=== PATIENT | male | born 1935 | race Hispanic/Latino ===

== ENCOUNTER 2019-08-28 15:50 | Inpatient (IN) | payer MEDICARE, OTHER ==
[~2019-08-28] VITALS: Ht 162.6 cm; Wt 61.7 kg
--- OUTSIDE RECORDS SUMMARY | 2019-08-28 15:52 | XMS REPORT ---
Author Author [facility] Address Unknown Phone Unavailable Care Team Providers Care Under Cutting Machine Operator Name Role Phone Unavailable Unavailable Problems This patient has no known problems. Allergies, Adverse Reactions, Alerts This patient has no known allergies or adverse reactions. Medications This patient has no known medications. Encounters Start Date/Time End Date/Time Encounter Type Admission Type Attending Clinicians Care Facility Care Department Encounter ID 2019-07-22 14:40:18 Outpatient [facility] [id number] 2019-06-19 10:42:00 2019-06-19 10:42:00 Outpatient [facility] [id number] 2019-05-21 13:47:00 2019-05-21 13:47:00 Outpatient [facility] [id number]
[2019-08-28] MEDS ORDERED: ALBUTEROL SULF 0.083% NEB SOLN 3 ML NEB NEB STA (17:57)
[2019-08-28] MEDS ORDERED: IPRATROPIUM BROMIDE 0.02% 2.5 ML NEB NEB STA (17:57)
[2019-08-28] MEDS ORDERED: FAMOTIDINE 20 MG/2 ML VIAL IV ONE ×2 (17:57→21:22)
[2019-08-28] MEDS ORDERED: SODIUM CHLORIDE 0.9% 1000ML 1,000 ML IV STA (17:57)
[2019-08-28] MEDS ORDERED: MEROPENEM 1GRAM 1 GM in SODIUM CHLORIDE 0.9% 100 ML 100 ML IV ONE (18:00)
[2019-08-28] MEDS ORDERED: MEROPENEM 1GRAM 1 GM in SODIUM CHLORIDE 0.9% 100 ML 100 ML IV SCH (18:15)
[2019-08-28] MEDS ORDERED: LEVALBUTEROL HCL SOLN NEBU 1.25 MG/3 ML NEB INH PRN (18:15)
[2019-08-28] MEDS ORDERED: MEROPENEM 1GM 100 ML IV ONE (18:15)
[2019-08-28 18:56] LABS: BASOPHILS # (AUTO) 0.1 (0.0-0.1); BASOPHILS % 0.7 % (0.0-1.0); EOSINOPHILS # (AUTO) 0.5 (0.0-0.4); EOSINOPHILS % 6.2 % (0.0-6.0); HEMATOCRIT 42.6 % (38.2-49.6); LYMPHOCYTES # (AUTO) 1.3 (1.0-3.2); MEAN CORPUSCULAR HEMOGLOBIN 29.2 pg (28-32); MEAN CORPUSCULAR HGB CONC 32.9 g/dL (31-35); MEAN CORPUSCULAR VOLUME 88.8 fL (81-99); MONOCYTES # (AUTO) 0.5 (0.2-0.8); MONOCYTES % 7.3 % (4.4-11.3); NEUTROPHILS # (AUTO) 4.9 (2.1-6.9); NEUTROPHILS % 67.5 % (38.7-80.0); PLATELET COUNT 216 x10e3/uL (140-360)
[2019-08-28 19:01] LABS: BILIRUBIN,URINE NEGATIVE (NEGATIVE); CLARITY,URINE CLEAR (CLEAR); COLOR,URINE YELLOW (YELLOW); KETONES,URINE NEGATIVE (NEGATIVE); LEUKOCYTE ESTERASE ,URINE NEGATIVE (NEGATIVE); NITRITE,URINE NEGATIVE (NEGATIVE); PROTEIN,URINE DIPSTICK NEGATIVE (NEGATIVE); URINE UROBILINOGEN 0.2 mg/dL (0.2 - 1)
[2019-08-28 19:07] LABS: INR 4.07
[2019-08-28 19:08] LABS: PARTIAL THROMBOPLASTIN TIME 49.1 seconds (23.8-35.5)
[2019-08-28 19:09] LABS: PROTHROMBIN TIME 40.3 seconds (11.9-14.5)
[2019-08-28 19:19] LABS: ALANINE AMINOTRANSFERASE 23 IU/L (0-55); ALBUMIN 3.7 g/dL (3.5-5.0); ALBUMIN/GLOBULIN RATIO 0.9 (0.8-2.0); ALKALINE PHOSPHATASE 75 IU/L (40-150); ANION GAP 11.6 mmol/L (8-16); BLOOD UREA NITROGEN 14 mg/dL (7-26); BUN/CREATININE RATIO 17 (6-25); CALCIUM 9.9 mg/dL (8.4-10.2); CARBON DIOXIDE 30 mmol/L (22-29); CHLORIDE 100 mmol/L (98-107); CREATINE KINASE 55 IU/L (30-200); CREATININE, SERUM 0.83 mg/dL (0.72-1.25); EST GLOMERULAR FILTRATION RATE > 60 ML/MIN (60-); GLUCOSE 89 mg/dL (74-118); LIPASE 37 U/L (8-78); MAGNESIUM 2.1 MG/DL (1.3-2.1); POTASSIUM 4.6 mmol/L (3.5-5.1); SODIUM 137 mmol/L (136-145)
--- NOTE | 2019-08-28 19:36 | Diagnostic Imaging Report ---
EXAMINATION: CHEST SINGLE (PORTABLE) INDICATION: Shortness of breath. Cough ^ERMD ORDER ^[id number] ^192 ^Y COMPARISON: None FINDINGS: TUBES and LINES: Sternal wires.. LUNGS: Scattered opacities most pronounced in the left lung worrisome for multifocal pneumonia. PLEURA: No pleural effusion or pneumothorax. Calcified pleural plaques. HEART AND MEDIASTINUM: The cardiomediastinal silhouette is unremarkable. BONES AND SOFT TISSUES: No acute osseous lesion. Soft tissues are unremarkable. UPPER ABDOMEN: No free air under the diaphragm. IMPRESSION: Scattered opacities most pronounced in the left lung worrisome for multifocal pneumonia Calcified pleural plaques. Signed by: Dr. Idris Castro M.D. on 08/28/2019 7:33 PM
[2019-08-28] MEDS ORDERED: AZITHROMYCIN 500MG/NS 250 ML 250 ML IV SCH (20:00)
[2019-08-28] MEDS ORDERED: AZITHROMYCIN 500MG/NS 250 ML 250 ML IV ONE (20:00)
[2019-08-28] MEDS: SODIUM CHLORIDE 0.9% 1000ML 1,000 ML IV SCH (21:30)
[2019-08-28] MEDS: MEROPENEM 1GM 100 ML IV SCH (21:35)
[2019-08-28 22:55] VITALS: BP 151/66
[2019-08-28 23:20] VITALS: BP 151/66
--- NOTE | 2019-08-28 23:30 | NUR ---
PATIENT ARRIVED FROM ER IN STABLE CONDITION, NO SIGNS OF DISTRESS NOTED. SON IS AT BEDSIDE AND PATIENT IS AMBULATORY HE IS WALKING OUT OF RESTROOM. IV MEDICATIONS ARE RUNNING AT ORDERED RATE AND PATIENT DOES NOT COMPLAIN OF SOB. BED IS LOCKED AND IN LOWEST POSITION, BOTH SIDE RAILS ARE UP, CALL LIGHT WITHIN EASY REACH, WILL CONTINUE TO MONITOR.
[2019-08-28] MEDS ORDERED: FINASTERIDE5 MG PO (23:41)
[2019-08-28] MEDS ORDERED: WARFARIN SODIUM10 MG PO (23:41)
[2019-08-28] MEDS ORDERED: TRIAMCINOLONE A15 G1 TOP (23:41)
[2019-08-28] MEDS ORDERED: NITROGLYCERIN0.4 MG SL (23:41)
[2019-08-28] MEDS ORDERED: ATORVASTATIN CA20 MG PO (23:41)
[2019-08-28] MEDS ORDERED: FLOMAX0.4 MG PO (23:41)
[2019-08-28] MEDS ORDERED: SOTALOL80 MG PO (23:41)
[2019-08-29 02:56] LABS: CREATINE KINASE MB 1.9 ng/mL (0-5.0)
[2019-08-29 04:04] VITALS: BP 142/64
[2019-08-29] MEDS: SODIUM CHLORIDE 0.9% 1000ML 1,000 ML IV SCH (04:15)
[2019-08-29] MEDS: MEROPENEM 1GM 100 ML IV SCH ×2 (06:45→19:07)
[2019-08-29 06:47] LABS: BASOPHILS % 0.7 % (0.0-1.0); EOSINOPHILS # (AUTO) 0.4 (0.0-0.4); EOSINOPHILS % 6.5 % (0.0-6.0); HEMATOCRIT 37.5 % (38.2-49.6); HEMOGLOBIN 12.1 g/dL (14.0-18.0); LYMPHOCYTES # (AUTO) 1.1 (1.0-3.2); LYMPHOCYTES % 19.5 % (18.0-39.1); MEAN CORPUSCULAR HEMOGLOBIN 28.5 pg (28-32); MEAN CORPUSCULAR HGB CONC 32.3 g/dL (31-35); MEAN CORPUSCULAR VOLUME 88.4 fL (81-99); MONOCYTES # (AUTO) 0.5 (0.2-0.8); MONOCYTES % 8.1 % (4.4-11.3); NEUTROPHILS # (AUTO) 3.7 (2.1-6.9); NEUTROPHILS % 64.8 % (38.7-80.0); PLATELET COUNT 168 x10e3/uL (140-360); RED BLOOD COUNT 4.24 x10e6/uL (4.3-5.7); RED CELL DISTRIBUTION WIDTH 15.1 % (11.7-14.4)
[2019-08-29 06:55] LABS: PARTIAL THROMBOPLASTIN TIME 54.3 seconds (23.8-35.5); PROTHROMBIN TIME 37.7 seconds (11.9-14.5)
--- NOTE | 2019-08-29 07:00 | NUR ---
BEDSIDE SHIFT REPORT RECEIVED FROM THE INTERLINE CLERK RN. PT DENIES NEEDS AT THIS TIME.
[2019-08-29 07:11] LABS: INR 3.73
[2019-08-29 07:15] LABS: ALANINE AMINOTRANSFERASE 20 IU/L (0-55); ALBUMIN 2.9 g/dL (3.5-5.0); ALBUMIN/GLOBULIN RATIO 0.9 (0.8-2.0); ALKALINE PHOSPHATASE 66 IU/L (40-150); ANION GAP 9.8 mmol/L (8-16); BLOOD UREA NITROGEN 13 mg/dL (7-26); BUN/CREATININE RATIO 20 (6-25); CALCIUM 8.1 mg/dL (8.4-10.2); CARBON DIOXIDE 28 mmol/L (22-29); CHLORIDE 102 mmol/L (98-107); CREATININE, SERUM 0.65 mg/dL (0.72-1.25); EST GLOMERULAR FILTRATION RATE > 60 ML/MIN (60-); GLUCOSE 77 mg/dL (74-118); MAGNESIUM 3.4 MG/DL (1.3-2.1); PHOSPHORUS 2.4 MG/DL (2.3-4.7); POTASSIUM 3.8 mmol/L (3.5-5.1); SODIUM 136 mmol/L (136-145)
--- NOTE | 2019-08-29 08:00 | NUR ---
EDUCATED PT ABOUT FALL PRECAUTIONS. CALL LIGHT WITH IN EASY REACH. INSTRUCTED PT TO USE CALL LIGHT FOR ALL THE NEEDS. PT VERBALIZED UNDERSTANDING. BED IS LOW AND LOCKED. SIDE RAILS X2. PT DENIES NEEDS AT THIS TIME.
[2019-08-29 08:06] VITALS: BP 124/59
[2019-08-29 08:09] VITALS: BP 124/59
--- NOTE | 2019-08-29 10:40 | NUR ---
DR. ELLIS AT BEDSIDE. INFORMED PT&INR VALUES
[2019-08-29] MEDS ORDERED: NITROGLYCERIN 0.4 MG SUBL SL PRN (11:00)
[2019-08-29 12:16] VITALS: BP 135/63
--- NOTE | 2019-08-29 13:40 | NUR ---
TELE CALLED REGARDING PT HEART RATE IN 130'S. PAGED DR ELLIS AND INFORMED. GIVE DAILY DOSE SOTALOL NOW PER THE
--- NOTE | 2019-08-29 13:50 | NUR ---
DR. AC AT BEDSIDE. INFORMED PT HR. GIVE SOTALOL PER THE DRDandy INFORMED MED GIVEN ALREADY.
[2019-08-29] MEDS: LINEZOLID 600 MG/D5W 300ML 300 ML IV SCH (14:35)
--- NOTE | 2019-08-29 14:45 | NUR ---
RECHECKED PT HR. 110 NOTED. PT C/O CHEST PAIN 01/12. INFORMED DR. ELLIS. NEW SCHEDULE PER DR. ELLIS FOR SOTALOL BID 6AM AND 6 PM. INFORMED THE SAME TO PHARMACY.
[2019-08-29] MEDS ORDERED: SODIUM CHLORIDE 0.9% 250ML 250 ML ONE (14:47)
--- NOTE | 2019-08-29 15:00 | NUR ---
PT OFF UNIT FOR PROCEDURE IN SAFE CONDITION.
[2019-08-29 15:57] LABS: CREATINE KINASE MB 1.4 ng/mL (0-5.0)
--- NOTE | 2019-08-29 16:00 | NUR ---
RECHECKED PT HR. 75 NOTED. PT AAOX4. NO PAIN PER THE PT. DENIES NEEDS AT THIS TIME.
--- NOTE | 2019-08-29 16:00 | NUR ---
PT WANTS TO DISCUSS WITH HIS SON BEFORE HE MAKES DECISION ON PICC LINE. PER THE PT, HIS SON WILL COME BY THIS EVENING.
--- NOTE | 2019-08-29 16:12 | Diagnostic Imaging Report ---
EXAM: CT Chest WITH intravenous contrast 08/29/2019 1:56 PM INDICATION: Cough COMPARISON: Chest radiograph of 08/28/2019 TECHNIQUE: Chest was scanned utilizing a multidetector helical scanner from the lung apex through the level of the adrenal glands after administration of IV contrast. Coronal and sagittal reformations were obtained. Routine protocol was performed. IV CONTRAST: 100mL Isovue 370 RADIATION DOSE: Total DLP: 457.0 mGy*cm. Dose modulation, iterative reconstruction, and/or weight based adjustment of the mA/kV was utilized to reduce the radiation dose to as low as reasonably achievable. COMPLICATIONS: None FINDINGS: LINES/ TUBES: None. LUNGS AND AIRWAYS: The central airways are patent. Multifocal tree-in-bud opacities involve the dependent portions of the right upper lobe, anterior right lower lobe, dependent left upper lobe, and dependent left lower lobe with associated areas of subsegmental bronchial mucus plugging and scattered areas of tubular bronchiectasis. PLEURA: No pleural effusion or pneumothorax. Extensive bilateral left greater than right calcified pleural plaques. HEART AND MEDIASTINUM: The thyroid gland is normal. No supraclavicular, mediastinal, or hilar lymphadenopathy. No axillary or internal mammary lymphadenopathy. Status post prior left internal mammary coronary artery bypass. The heart is nonenlarged. No pericardial effusion. Scattered coronary artery and aortic atherosclerotic calcifications. The main pulmonary artery is not enlarged. No central pulmonary embolism. UPPER ABDOMEN: Limited images of the upper abdomen demonstrate multiple small cysts in the liver. No focal abnormality of the spleen, pancreas, adrenals, or upper kidneys. Mild gallbladder distention to 4. 3 cm diameter with a 1.8 cm calcified gallstone at the gallbladder neck. No pericholecystic fluid or gallbladder wall thickening. BONES: No acute osseous injury. No suspicious lytic or blastic lesions. Sternotomy wires in place. SOFT TISSUES: Unremarkable. IMPRESSION: Bilateral multifocal tree-in-bud opacities involving the dependent portions of all lobes with associated areas of subsegmental bronchial mucus plugging and scattered tubular bronchiectasis is consistent with aspiration and and bronchial spread of atypical infection. 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 Mild gallbladder distention to 4.3 cm diameter with 1.8 cm calcified gallstone at the gallbladder neck. No pericholecystic fluid or gallbladder wall thickening. Signed by: Sha Smith MD on 08/29/2019 4:09 PM
--- NOTE | 2019-08-29 16:29 | Consultation ---
DATE OF CONSULTATION: 08/29/2019 Pulmonary Consultation HISTORY OF PRESENT ILLNESS: Mr. Hernandez is an 84-year-old man with multiple medical problems including coronary artery disease and atrial fibrillation, was found to have an abnormal chest x-ray with bronchiectasis, scattered bilateral nodules, and tree and bud formation, had bronchoscopy as outpatient and grew back organism Mycobacterium chelonae-abscessus complex, was fairly resistant except to imipenem, Zyvox, and amikacin. He has cough with thick, purulent green sputum. It is hard for him to expectorate. He has shortness of breath with exertion. He has anorexia at times. PAST MEDICAL HISTORY: Skin cancer, prediabetes, hypertension, coronary artery disease, atrial fibrillation, asbestos exposure. PAST SURGICAL HISTORY: Includes aortocoronary bypass with 3 vessels, herniorrhaphy, appendectomy, skin cancer surgery. FAMILY HISTORY: Both his parents are . SOCIAL HISTORY: No alcohol. He is a nonsmoker. He does have exposure to asbestos occupationally. He is . No history of drug use. ALLERGIES: DRUG ALLERGIES, KEFLEX. PHYSICAL EXAMINATION: VITAL SIGNS: He is afebrile. Heart rate was in the 50s earlier, currently it is 133, but he just got his antiarrhythmic sotalol. Oxygen saturation 98%. GENERAL: This is a pleasant, thin elderly man, looks as stated age, awake and alert. HEENT: Head is normocephalic. Mucous membranes are moist. NECK: Supple. Trachea is midline. CHEST: A few rhonchi. HEART: Regular, but tachycardic rate and rhythm respectively. I do not hear any murmurs. ABDOMEN: Soft, nontender. EXTREMITIES: No cyanosis, clubbing, or edema. SKIN: Warm and dry without rash. NEUROLOGICAL: He is awake, alert, nonfocal. LABORATORY DATA: White count 5.7, hemoglobin and hematocrit 12 and 37, and 168,000 platelets. Chemistries shows normal electrolytes, creatinine 0.6. Albumin is low at 2.9, brain natriuretic peptide 274. INR was 4 on admission. Chest x-ray shows bilateral hazy opacities consistent with his history of pleural plaques and nodular opacities. IMPRESSION: 1. Bronchiectasis with acute exacerbation as well as bronchiolitis. 2. Mycobacterium abscessus infection, nodular with very limited antibiotic susceptibility. 3. Coronary artery disease. 4. Atrial fibrillation. 5. Coagulopathy, on chronic Coumadin. 6. 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 RECOMMENDATIONS AND PLAN: He has been started on meropenem. We will add Zyvox. He will need long-term antibiotics based on that recommendations. Put a PICC line in him. He will have a CT of the chest since the most recent was in May. He will have a Cardiology consultation as well as an infectious consultation. Office records including more recent bronchoscopically a 10-sputum specimen and identification placed on the chart. In all likelihood, he will need to go to a long-term acute care for treatment with dual-antibiotic therapy, monitoring his cardiac function rate, and monitoring of his anticoagulation while on the antibiotics. Discussed with the attending and Case Management. MD DAVID Serrato/LEROY /[id number]
[2019-08-29 16:32] VITALS: BP 131/72
[2019-08-29] MEDS ORDERED: SOTALOL HCL 80 MG TAB PO SCH ×3 (17:00→18:00)
--- NOTE | 2019-08-29 17:04 | History and Physical ---
PRIMARY CARE PHYSICIAN: Lloyd Stroud MD. CONSULTANTS: 1. Washington Feliciano MD. 2. Lloyd Stroud MD. CHIEF COMPLAINT: Increasing shortness of breath. Mycobacterial infection. Pneumonia. HISTORY OF PRESENT ILLNESS: The patient is a pleasant 84-year-old male with multiple medical problems. The patient has history of multiple medical problem including anticoagulant therapy with atherosclerotic heart disease, the [place] coronary artery, atrial fibrillation on Coumadin, hypertension, and history of malignant skin cancer. The patient also has Mycobacterium infection for sometime now. The patient is on multiple medication. He came in because of failed outpatient treatment with antibiotics, but he also has extensive treatment with multiple antibiotics and did not improve. Baseline, he has bronchiectasis with recurrent exacerbation. 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 The patient is admitted for antibiotic. He is on meropenem and azithromycin. The patient is stable at this time. PAST MEDICAL HISTORY: Asthma, Mycobacterium infection, bronchiectasis, coronary artery disease, atrial fibrillation, hypertension, metabolic syndrome, and history of skin cancer. PAST SURGICAL HISTORY: Malignant tumor of the skin that we removed, coronary artery bypass graft surgery, appendectomy, and hernia repair. FAMILY HISTORY: Significant for coronary artery disease and diabetes. SOCIAL HISTORY: The patient does not smoke. He is . He does not drink alcohol. ALLERGIES: TO KEFLEX. HOME MEDICATIONS: Lipitor, finasteride, nitroglycerin, sotalol, Flomax, and warfarin. PHYSICAL EXAMINATION: VITAL SIGNS: Temperature is 98, blood pressure 124/59, pulse rate is 64, and respirations 18. GENERAL: The patient is not in acute distress. He is awake. HEENT: Normocephalic and atraumatic. Pupils reactive. NECK: Supple grossly. PULMONARY: Diminished breath sounds bilaterally with coarses and rhonchi. CARDIOVASCULAR: S1 and S2. Bradycardia. ABDOMEN: Soft, nontender, and non-distention. EXTREMITIES: No gross cyanosis or edema. NEUROLOGIC: No gross focal deficit. LABORATORY DATA: Sodium is 136, potassium 3.8, chloride 102, bicarb 28, BUN 13, creatinine 0.6, and glucose 77. WBC is 5.7, hemoglobin 12.1, hematocrit 37.5, and platelets is 160. IMPRESSION: 1. Failed outpatient for pulmonary Mycobacterium infection in the lung causing bronchiectasis extensively with acute exacerbation. 2. Mycobacterium chelonae infection of the lung. 3. Multiple baseline problems including enlarged prostate, coronary artery disease, and dyslipidemia. PLAN: Resume home medication. Continue with antibiotics treatment. We will repeat the PT/INR in the morning, currently is 3.73. He is on warfarin. We will adjust the dosing pending on further evaluation. The patient is stable. Continue with antibiotic, azithromycin and meropenem. Dr. Feliciano is on the case. We will monitor the patient closely. MD LAURENCE Bentley/OMEROL /[id number]
--- NOTE | 2019-08-29 18:18 | NUR ---
DR WU AT BEDSIDE. NEW ORDERS RECEIVED. D/C AZITHROMYCIN AND CHANGE SOTALOL TO DAILY STARTS TOMORROW.
--- NOTE | 2019-08-29 19:00 | NUR ---
BEDSIDE SHIFT REPORT GIVEN TO THE ACCOUNT REPRESENTATIVE RN. PT DENIED FURTHER NEEDS. PT FAMILY AT BEDSIDE.
--- NOTE | 2019-08-29 19:15 | NUR ---
patient received awake, alert, lying quietly in bed. no c/o pain noted. respirations even and and unlabored. pm assessment complete. patient instructed to call for assistance when needed.
[2019-08-29 20:00] VITALS: BP 121/58
--- NOTE | 2019-08-29 20:45 | NUR ---
Received report from nurse.
--- NOTE | 2019-08-29 22:20 | Diagnostic Imaging Report ---
EXAMINATION: CHEST XRAY LINE PLACEMENT INDICATION: PICC line placed COMPARISON: Chest CT 08/28/2019, chest radiograph 08/28/2019 FINDINGS: AP view TUBES and LINES: Left upper extremity PICC tip terminates in the low SVC.. LUNGS/PLEURA: Lungs are well inflated. Persistent bilateral hazy airspace opacities, left greater than right. 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 No pneumothorax. HEART AND MEDIASTINUM: The cardiomediastinal silhouette is within normal size limits. Surgical clip in the left lower mediastinum. Aortic arch calcifications. BONES AND SOFT TISSUES: No acute osseous lesion. Soft tissues are unremarkable. UPPER ABDOMEN: No free air under the diaphragm. IMPRESSION: Left upper extremity PICC tip terminates in the low SVC.. Persistent findings of multifocal pneumonia. Signed by: Artemio Ponce DO on 08/29/2019 10:16 PM
--- NOTE | 2019-08-29 22:28 | NUR ---
PICC tip is in the low SVC per radiology report by Dr Ponce. PICC is okay to use
[2019-08-29] MEDS ORDERED: SODIUM CHLORIDE 0.9% 50ML 50 ML ONE (22:35)
[2019-08-29] MEDS ORDERED: IOPAMIDOL 370 MG/ML 200 ML INFUS..BTL INJ ONE (22:35)
[2019-08-30] VITALS (7 sets, daily range): BP systolic 113–123; BP diastolic 55–63
[2019-08-30] MEDS: LINEZOLID 600 MG/D5W 300ML 300 ML IV SCH ×2 (01:41→14:30)
--- NOTE | 2019-08-30 02:01 | Consultation ---
DATE OF CONSULTATION: Cardiology consultation. CONSULTING PHYSICIAN: Liam Almazan MD, Interventional Cardiology. REASON FOR CONSULTATION: Atrial fibrillation. HISTORY OF PRESENT ILLNESS: An 84-year-old pleasant man with a history of coronary artery disease, status post remote aortocoronary bypass, history of asbestos exposure, paroxysmal atrial fibrillation on chronic sotalol therapy, hypertension, impaired fasting glucose, and history of skin cancer, presents to [facility] for further evaluation of abnormal chest x-ray findings including bronchiectasis and scattered bilateral nodules and tree-in-bud formation status post bronchoscopy as outpatient growing Mycobacterium chelonae-abscessus complex, which seems to be a resistant organism. He has a dry cough. Denies any fevers. He noted today to have palpitations associated to chest discomfort and shortness of breath. In telemetry, he was noted to have conversion from sinus bradycardia to atrial fibrillation with rapid ventricular response. He has since converted back to sinus bradycardia and has currently no residual symptoms. Denies chest pain or shortness of breath. He has no other complaints. He has been on anticoagulation with vitamin K antagonist. PAST MEDICAL HISTORY: As per HPI. SURGICAL HISTORY: Including bypass, herniorrhaphy, appendectomy, and skin cancer. SOCIAL HISTORY: Denies smoking, alcohol, or drugs. Occupational asbestos exposure. FAMILY HISTORY: Noncontributory. ALLERGIES: TO KEFLEX. PHYSICAL EXAMINATION: VITAL SIGNS: Temperature 97.1, heart rate 94, respiratory rate 18, blood pressure 131/72, and O2 saturation 96% on room air. GENERAL: In no acute distress. Alert, active, oriented x3. NECK: No JVD. No carotid bruits. CHEST: Clear to auscultation bilaterally. CARDIOVASCULAR: Regular rate and rhythm. Normal S1 and S2. No S3, no S4. No murmurs, no rubs. Sternotomy scar. ABDOMEN: Soft, nontender, nondistended. Bowel sounds are positive. EXTREMITIES: No cyanosis, clubbing, or edema. CARDIOVASCULAR MEDICATION: Reviewed. Linezolid, meropenem, sotalol 80 mg daily, tamsulosin 0.4 mg daily, nitroglycerin p.r.n., finasteride 5 mg daily, levalbuterol p.r.n., ipratropium p.r.n. He was on azithromycin IV, which is being discontinued as of today. LABORATORY DATA: White blood cells 5.7, hemoglobin 12.1, and platelets 168. INR 3.7. Sodium 136, potassium 3.8, chloride 102, bicarbonate 28, BUN 13, creatinine 0.65, glucose 77, calcium 8.1, magnesium 3.4, phosphorus 2.4, total bilirubin 0.7, AST 19, ALT 20, alkaline phosphatase 66. Troponin I negative x3. BNP 274, total protein 6, albumin 2.9. Chest CT as per previous description. ASSESSMENT: 1. Paroxysmal atrial fibrillation. 2. Coronary artery disease, status post remote aortocoronary bypass. 3. Mycobacterium infection. 4. History of asbestos exposure. 5. Dyslipidemia. RECOMMEND: 1. Hold warfarin for INR over 3. 2. Discontinue azithromycin to avoid interaction with QT prolongation with sotalol. 3. Continue sotalol at current dose and monitor on telemetry as well as serial EKGs for QT surveillance. 4. Obtain echocardiogram. I thank Dr. Lloyd Stroud and Dr. Cassidy for the opportunity to participate in the care of this patient. Please feel free to call with any questions. MD SAGE Valdivia/LEROY /[id number]
[2019-08-30 06:15] LABS: BASOPHILS % 0.5 % (0.0-1.0); EOSINOPHILS # (AUTO) 0.4 (0.0-0.4); EOSINOPHILS % 5.6 % (0.0-6.0); HEMATOCRIT 35.7 % (38.2-49.6); HEMOGLOBIN 11.7 g/dL (14.0-18.0); LYMPHOCYTES # (AUTO) 1.2 (1.0-3.2); LYMPHOCYTES % 16.9 % (18.0-39.1); MEAN CORPUSCULAR HGB CONC 32.8 g/dL (31-35); MEAN CORPUSCULAR VOLUME 88.6 fL (81-99); MONOCYTES # (AUTO) 0.6 (0.2-0.8); MONOCYTES % 8.5 % (4.4-11.3); NEUTROPHILS % 68.2 % (38.7-80.0); PLATELET COUNT 137 x10e3/uL (140-360); RED BLOOD COUNT 4.03 x10e6/uL (4.3-5.7)
[2019-08-30 06:26] LABS: INR 2.92; PROTHROMBIN TIME 31.2 seconds (11.9-14.5)
[2019-08-30] MEDS: MEROPENEM 1GM 100 ML IV SCH (06:45)
[2019-08-30 06:46] LABS: BLOOD UREA NITROGEN 17 mg/dL (7-26); BUN/CREATININE RATIO 22 (6-25); CALCIUM 8.1 mg/dL (8.4-10.2); CARBON DIOXIDE 28 mmol/L (22-29); CHLORIDE 104 mmol/L (98-107); CREATININE, SERUM 0.78 mg/dL (0.72-1.25); EST GLOMERULAR FILTRATION RATE > 60 ML/MIN (60-); GLUCOSE 85 mg/dL (74-118); SODIUM 138 mmol/L (136-145)
[2019-08-30] MEDS: TAMSULOSIN HCL 0.4 MG CAP PO SCH (08:25)
[2019-08-30] MEDS: SOTALOL HCL 80 MG TAB PO SCH (08:26)
[2019-08-30] MEDS: FINASTERIDE 5 MG TAB PO SCH (08:26)
[2019-08-30] MEDS ORDERED: SOTALOL HCL 80 MG TAB PO SCH (09:00)
[2019-08-30] MEDS: IPRATROPIUM BROMIDE 0.02% 2.5 ML NEB NEB PRN ×2 (13:30→19:06)
--- NOTE | 2019-08-30 16:24 | Progress Note ---
DATE: SUBJECTIVE: Mr. Hernandez is currently lying in bed comfortably. No complaints. REVIEW OF SYSTEMS: HEENT: Negative. PULMONARY: . GENITOURINARY: Negative. GASTROINTESTINAL: Negative. LABORATORY DATA: Reviewed his sodium 130, potassium 4.0, and creatinine 0.78. His white count 7.3 and hemoglobin 11.7. PHYSICAL EXAMINATION: GENERAL: He is currently alert, oriented, does not seem to be in acute distress. VITAL SIGNS: Stable. Currently afebrile. HEENT: Not icteric. NECK: Supple. CHEST: Clear. HEART: Soft. Bowel sounds present. No tenderness. EXTREMITIES: No edema. IMPRESSION: 1. 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 We will treat with meropenem, Zyvox, amikacin. We will follow levels. Obtain the PICC line. Other medical problems as above per other consultants. 2. Atrial fibrillation. 3. Coronary artery disease. 4. Dyslipidemia, on Coumadin. We will follow. MD IRLANDA Johnson/LEROY /[id number]
--- NOTE | 2019-08-30 16:50 | Progress Note ---
DATE: 08/30/2019 Cardiology Progress Note SUBJECTIVE: Denies any chest pain or shortness of breath today. Denies palpitations, lightheadedness, or syncope. OBJECTIVE: VITAL SIGNS: In sinus rhythm currently. Temperature 96.2, heart rate 65, respiratory rate 20, blood pressure 114/55, O2 saturation 97%, BMI 25. GENERAL: No acute distress, alert. NECK: No JVD. No carotid bruit. CHEST: Clear to auscultation. CARDIOVASCULAR: Regular rate and rhythm. Normal S1, S2. No S3, no S4. No murmurs, no rubs. ABDOMEN: Soft, nontender. Bowel sounds positive. EXTREMITIES: Warm distal extremities. No edema. SKIN: With sternotomy scar noted. CARDIOVASCULAR MEDICATIONS: Have been reviewed. Sotalol 80 mg daily, warfarin 3 mg daily, tamsulosin 0.4 mg daily. STUDIES: Reviewed. Sodium 138, potassium 4, chloride 104, bicarbonate 28, BUN 17, creatinine 0.78, glucose 85. White blood cell 7.3, hemoglobin 11.7, platelets 237. PT 31.2, PTT 54.3, INR 2.9. AST 19, ALT 20, alkaline phosphatase 66, total bilirubin 0.7. ASSESSMENT: An 84-year-old man with history of coronary artery disease, status post remote aortocoronary bypass, paroxysmal atrial fibrillation, mycobacterium infection. RECOMMENDATIONS: 1. Monitor rhythm on telemetry. 2. Repeat EKG to monitor QTc tomorrow. 3. Azithromycin discontinued. If okay with other services, I advised on limiting QT prolonging drops whereas possible given use of sotalol as antiarrhythmic. 4. Continue rhythm control strategy with sotalol. 5. Warfarin adjusted dose as needed for target INR 2-3. 6. Please feel free to call with any questions [phone]. MD SAGE Valdivia/LEROY /[id number]
[2019-08-30] MEDS ORDERED: WARFARIN SOD 3 MG TAB PO SCH (17:00)
[2019-08-30] MEDS: MEROPENEM 500MG/ NS 50ML 50 ML IV SCH ×2 (17:17→23:57)
--- NOTE | 2019-08-30 19:24 | NUR ---
Received change of shift report from AM nurse. Walking rounds completed.
--- NOTE | 2019-08-30 21:16 | Consultation ---
DATE OF CONSULTATION: 08/29/2019 I was asked to see this patient currently with Dr. Stroud. The patient is seen and examined, discussed the case with Dr. Stroud. HISTORY OF PRESENT ILLNESS: This is an 84-year-old male, who have complicated medical history including atherosclerotic disease, coronary artery disease, [place] coronary artery disease, atrial fibrillation, on Coumadin, history of hypertension, history of malignant skin cancer before, history of COPD. He was diagnosed with mycobacterium. The patient had been followed by . Apparently, a culture was obtained and it was Mycobacterium, but resistant to several antibiotic and the patient who has been having some cough and shortness of breath. He grew mycobacterium chelonae/abscesses complex is sensitive only to imipenem, Zyvox, and amikacin. The patient was sent here to receive IV antibiotics since they could not arrange home IV antibiotic. The patient was just not feeling well with shortness of breath and cough. The patient was seen in emergency room. PAST MEDICAL HISTORY: Skin cancer, diabetes mellitus, hypertension, coronary artery disease, atrial fibrillation, asbestosis. PAST SURGICAL HISTORY: He had coronary artery disease, bypass, skin cancer surgery, and appendectomy. SOCIAL HISTORY: There is no smoking, drug abuse, or alcohol abuse. FAMILY HISTORY: Hypertension. ALLERGIES: KEFLEX. REVIEW OF SYSTEMS: GENERAL: He is just feeling weak. HEENT: There is no headache, visual change or hearing changes. He does have some cough, productive with yellow sputum. LABORATORY DATA: White count is 7.28, hemoglobin 14. His sodium 136, potassium 3.8, creatinine 0.65. IMAGING: He had a CT of the chest done on the , which showed bilateral multifocal tree-in-bud opacities involving the dependent portions, all lobes associated with bronchial mucous plugging. Mild gallbladder distention with calcified stone. His influenza A/B was negative. Sodium 138, potassium 4, creatinine 0.78. Liver enzyme within normal limit. PHYSICAL EXAMINATION: GENERAL: He is currently alert, oriented, does not seem to be in acute distress. VITAL SIGNS: Stable, currently afebrile. HEENT: He is not icteric. NECK: Supple. CHEST: Clear. HEART: S1, S2. No murmur. ABDOMEN: Soft. Bowel sounds present. EXTREMITIES: No edema. IMPRESSION AND PLAN: 1. Pneumonia with mycobacterium chelonae, felt resistant. We will put on meropenem 500 IV q.6., obtain PICC line. We will start him on oral Zyvox 600 mg p.o. b.i.d. We will add amikacin. 2. Abnormal gallbladder. Consider cholecystectomy. 3. History of chronic obstructive pulmonary disease, history of coronary artery disease, history of asbestosis, history of skin cancer, paroxysmal atrial fibrillation, history of hyperlipidemia. We will follow. Thank you very much to see this patient. MD IRLANDA Johnson/LEROY /[id number]
--- NOTE | 2019-08-30 22:21 | Progress Note ---
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 OBJECTIVE: VITAL SIGNS: He is afebrile. Pulse of 55, blood pressure 123/62, respiratory rate 16, oxygen saturation 98%. GENERAL: He is alert. Breathing appropriately. HEENT: Atraumatic. NECK: No tenderness. LUNGS: Decreased breath sounds and some crackles. HEART: No heart murmurs. ABDOMEN: Soft. EXTREMITIES: No pedal edema. MEDICATIONS: The patient is on Xopenex 1.25 q.6h, Zyvox 300 mg q.12h, sotalol 80 mg a day, finasteride 5 mg a day. He is also on Atrovent q.6h along with Xopenex, Merrem q.12h, Flomax 0.4 daily, nitroglycerin 0.4 p.r.n. LABORATORY DATA: In terms of the labs, sodium 138, potassium 4, chloride 104, CO2 of 28, BUN 17, creatinine 0.78, sugar 85. WBC 7.32, hemoglobin 11.7, platelets 137. PT 31.2, PTT 54.3, INR 2.92. Total bilirubin 0.7, AST 19, alkaline phosphatase 66, ALT 20. IMPRESSION: Bronchiectasis with acute exacerbation, shortness of breath, mycobacterial infection, coronary artery disease, atrial fibrillation, for which he is getting Coumadin anticoagulant treatment. Overall, the patient seems to be stable. RECOMMENDATIONS: My recommendation is to continue with his same medications. MD IRLANDA Johnson/LEROY /[id number]
[2019-08-31] VITALS (7 sets, daily range): BP systolic 88–105; BP diastolic 57–68
--- NOTE | 2019-08-31 | NUR ---
Patient up to restroom and HR elevated to 130. Encouraged patient to sit and HR decreased to 60. Report to MD.
[2019-08-31] MEDS: LINEZOLID 600 MG/D5W 300ML 300 ML IV SCH ×2 (02:00→15:24)
--- NOTE | 2019-08-31 04:00 | NUR ---
Patient HR elevates to 130-140 while ambulating to the bath room. Patient instructed to call before getting out of bed. Patient up to bathroom became weak and none responsive. BP 83/59 hr [address] in bed BP 103/[address] Bunch called and informed of patients episode. Orders received and completed.
[2019-08-31] MEDS ORDERED: DIGOXIN INJ 0.25 MG/ML 2 ML AMP IV ONE (05:15)
[2019-08-31] MEDS: MEROPENEM 500MG/ NS 50ML 50 ML IV SCH ×3 (06:00→19:00)
[2019-08-31 06:16] LABS: INR 1.68; PROTHROMBIN TIME 20.4 seconds (11.9-14.5)
[2019-08-31] MEDS: SOTALOL HCL 80 MG TAB PO SCH ×2 (07:45→17:50)
[2019-08-31] MEDS: FINASTERIDE 5 MG TAB PO SCH (07:55)
[2019-08-31] MEDS: TAMSULOSIN HCL 0.4 MG CAP PO SCH (07:55)
--- NOTE | 2019-08-31 11:37 | NUR ---
Manual BP 105/55.
--- NOTE | 2019-08-31 16:35 | Progress Note ---
DATE: 08/31/2019 Cardiology Progress Note SUBJECTIVE: No complaints. Denies chest pain or shortness of breath. Had episode of lightheadedness this morning, was associated with improved atrial fibrillation with RVR and temporary hypertension, now resolved, back to sinus rhythm on telemetry. OBJECTIVE: VITAL SIGNS: Temperature 98.1, heart rate 83, blood pressure 101/68, respiratory rate 17, and O2 saturation 97%. GENERAL: In no acute distress. Alert. NECK: No JVD. CHEST: Clear to auscultation. CARDIOVASCULAR: Regular rate and rhythm. Normal S1 and S2. No S3 or S4. ABDOMEN: Soft. Bowel sounds positive. EXTREMITIES: No edema. SKIN: Sternotomy scar. CARDIOVASCULAR MEDICATIONS: Reviewed. Sotalol increased to 80 mg t.i.d., . The patient is off azithromycin now for several days. Warfarin is uptitrated from 3 to 4 mg daily for INR subtherapeutic 1.6 today, tamsulosin 0.4 mg daily, and nitroglycerin p.r.n. STUDIES: Reviewed. Remarkable for potassium 4 and creatinine 0.7. White blood cell 7.3, hemoglobin 11, and platelets 137. INR 1.68. ASSESSMENT AND PLAN: An 84-year-old man presents with mycobacterial infection, has history of coronary artery disease with remote aortocoronary bypass and atrial fibrillation, on chronic anticoagulation with vitamin K antagonist. RECOMMENDATIONS: 1. Continue current regimen, but placed holding parameter for sotalol, as systolic blood pressure less than 90. 2. Continue telemetry monitoring. 3. Avoid QT prolonging drugs. 4. Add aspirin and if okay with other treating physicians, consider adding statin to regimen. Liam Almazan MD AFV/MODL /[id number]
[2019-08-31] MEDS: IPRATROPIUM BROMIDE 0.02% 2.5 ML NEB NEB PRN (17:45)
[2019-08-31] MEDS: WARFARIN SOD 2 MG TAB PO SCH (17:50)
--- NOTE | 2019-08-31 19:37 | NUR ---
RECEIVED PT IN BED AOX3 .DENIES PAIN .TELE 13 SHOWS SR/SB. LEFT PICC LINE S/L RESPIRATIONS ARE EVEN AND UNLABORED .CALL LIGHT WITH IN REACH .CONTINUE TO MONITOR
--- NOTE | 2019-08-31 20:51 | Progress Note ---
DATE: 08/31/[address] Stroud. SUBJECTIVE: The patient was diagnosed with shortness of breath, mycobacterium disease and pneumonia. He has off and on shortness of breath. OBJECTIVE: VITAL SIGNS: Temperature 98.4, pulse 101, blood pressure 103/68, respiratory rate 20, oxygen saturation 97. GENERAL: He is stable. HEENT: Atraumatic. LUNGS: Dull crackles and rhonchi. HEART: No heart murmurs. ABDOMEN: Soft. EXTREMITIES: No pedal edema. MEDICATIONS: He is on Xopenex 1.25 along with Atrovent, nebulization q.6, , sotalol 80 mg a day, finasteride 5 mg a day, warfarin 3 mg a day, Zyvox 300 q.12, Flomax 0.4 daily, nitroglycerin 0.4 p.r.n. LABORATORY DATA: Sodium 138, potassium 4, chloride 104, BUN 17, creatinine 0.78, sugar 85. WBC 7.32, hemoglobin 11.7, platelets 137. PT 20.4 with INR of 1.68, PTT 64.3, AST 19, total bilirubin 0.7, alkaline phosphatase 66, ALT 20. Electrocardiogram atrial fibrillation with left ventricular hypertrophy and negative T-waves in the most of the anterior leads. IMPRESSION: Bronchiectasis with acute exacerbation, mycobacterial infection, coronary artery disease, atrial fibrillation. RECOMMENDATIONS: Continue with same medications and to continue with Coumadin and the rest of the medications of the patient being given. MD IRLANDA Johnson/LEROY /[id number]
[2019-09-01] VITALS (9 sets, daily range): BP systolic 92–132; BP diastolic 50–62
[2019-09-01] MEDS: LINEZOLID 600 MG/D5W 300ML 300 ML IV SCH ×2 (02:00→13:41)
[2019-09-01] MEDS: MEROPENEM 500MG/ NS 50ML 50 ML IV SCH ×4 (05:49→17:07)
[2019-09-01 06:10] LABS: INR 1.47; PROTHROMBIN TIME 18.4 seconds (11.9-14.5)
--- NOTE | 2019-09-01 06:16 | NUR ---
PT RESTED DURING THE NIGHT .DENIES PAIN .CALL LIGHT WITH IN REACH .CONTINUE TO MONITOR
--- NOTE | 2019-09-01 07:04 | NUR ---
BEDSIDE REPORT GIVEN TO THE ONCOMING NURSE
[2019-09-01] MEDS: SOTALOL HCL 80 MG TAB PO SCH ×2 (10:09→17:07)
[2019-09-01] MEDS: TAMSULOSIN HCL 0.4 MG CAP PO SCH (10:09)
[2019-09-01] MEDS: FINASTERIDE 5 MG TAB PO SCH (10:09)
--- NOTE | 2019-09-01 11:58 | Progress Note ---
DATE: 09/01/2019 Cardiology Progress Note SUBJECTIVE: Denies chest pain or shortness of breath. OBJECTIVE: VITAL SIGNS: Temperature 95.7, heart rate 67, blood pressure 105/58, respiratory rate 16, and O2 saturation 96%, sinus rhythm. GENERAL: In no distress and alert. NECK: No JVD. CHEST: Clear to auscultation. CARDIOVASCULAR: Regular rate and rhythm. Normal S1 and S2. No S3, no S4. ABDOMEN: Soft and nontender. Bowel sounds positive. EXTREMITIES: No edema. SKIN: With sternotomy scar. STUDIES: Reviewed. Creatinine 0.78. Potassium 4. Hemoglobin 11.7 and platelets 137. INR 1.47. ASSESSMENT: An 84-year-old man with paroxysmal atrial fibrillation, mycobacterial infection, history of aortocoronary bypass, and coronary artery disease. RECOMMENDATIONS: 1. Lovenox bridge 60 mg every 12 hours subcu while INR less than 2. 2. Add aspirin 81 mg daily. 3. Add rosuvastatin 20 mg at bedtime. 4. Continue sotalol at current dose 80 mg b.i.d. Monitor on telemetry and interval evaluation of QT with EKGs. 5. Continue warfarin for target INR 2 to 3. MD SAGE Valdivia/LEROY /[id number]
--- NOTE | 2019-09-01 13:19 | NUR ---
Order received for LTAC. Discussed with patient using translation line. Patient chooses [facility]. Rep here to receive clinicals. MOT initiated
--- NOTE | 2019-09-01 17:06 | NUR ---
late entry 08/31 doin well no complaints reviwed all systems doing well med noted labs noted PE ao nad heent not pale not icteric chest crackles cor s1s2 abdomen soft bs pos\ MEDICATIONS: He is on Xopenex 1.25 along with Atrovent, nebulization q.6, , sotalol 80 mg a day, finasteride 5 mg a day, warfarin 3 mg a day, Zyvox q.12, Flomax 0.4 daily, nitroglycerin 0.4 p.r.n. LABORATORY DATA: Sodium 138, potassium 4, chloride 104, BUN 17, creatinine 0.78, sugar 85. WBC 7.32, hemoglobin 11.7, platelets 137. PT 20.4 with INR of 1.68, PTT 64.3, AST 19, total bilirubin 0.7, alkaline phosphatase 66, ALT 20. Electrocardiogram atrial fibrillation with left ventricular hypertrophy and negative T-waves in the most of the anterior leads. IMPRESSION: Bronchiectasis with acute exacerbation, mycobacterial infection, coronary artery disease, atrial fibrillation. RECOMMENDATIONS: Continue with same medications and to continue with Coumadin and the rest of the medications of the patient being given
[2019-09-01] MEDS: WARFARIN SOD 2 MG TAB PO SCH (17:07)
--- NOTE | 2019-09-01 19:42 | Progress Note ---
DATE: SUBJECTIVE: Mr. Hernandez is doing well. No new complaint. His shortness of breath slowly getting better. His cough is about the same. REVIEW OF SYSTEMS: HEENT: Negative. PULMONARY: As above. : Negative. GI: Negative. Otherwise unremarkable. PHYSICAL EXAMINATION: GENERAL: Currently alert and oriented. Does not seem in acute distress. VITAL SIGNS: Stable, afebrile. HEENT: He is not icteric. NECK: Supple. CHEST: Few rhonchi bilateral. COR: S1 and S2. No S3, S4, or murmurs. ABDOMEN: Soft. IMPRESSION: 1. Pneumonia with Mycobacterium. 2. COPD exacerbation. 3. Bronchiectasis. 4. Coronary artery disease. 5. Atrial fibrillation. 6. Pneumonia, sensitive only to IV antibiotic meropenem and Zyvox. PLAN: The plan is to continue the same at least 2 months. Weekly CBC, weekly chem panel. Discussed with Pulmonary. Discussed with the medical team. We will follow. MD IRLANDA Johnson/LEROY /[id number]
--- NOTE | 2019-09-01 19:53 | NUR ---
RECEIVED PT IN [place] IN THE ROOM BED AOX3 DENIES PAIN .CALL LIGHT WITH IN REACH .CONTINUE TO MONITOR Addendum: 09/01/19 at 1953 by Kayden Brady RN WRONG
--- NOTE | 2019-09-01 19:54 | NUR ---
RECEIVED PT WALKING INTHE ROOM IN BED AOX3 .DENIES PAIN .CALL LIGHT WITH IN REACH .CONTINUE TO MONITOR
[2019-09-01] MEDS: CRESTOR 10MG PO SCH (21:06)
[2019-09-01] MEDS: ENOXAPARIN SOD INJ 60 MG/0.6 ML SYR SC SCH (21:07)
[2019-09-02] VITALS (8 sets, daily range): BP systolic 98–137; BP diastolic 53–64
[2019-09-02] MEDS: LINEZOLID 600 MG/D5W 300ML 300 ML IV SCH ×2 (02:00→14:20)
[2019-09-02] MEDS: MEROPENEM 500MG/ NS 50ML 50 ML IV SCH ×4 (05:55→18:30)
--- NOTE | 2019-09-02 06:01 | NUR ---
PT RESTED DURING THE NIGHT .NO ACUTE DISTRESS NOTED .CALL LIGHT WITH IN REACH .CONTINUE TO MONITOR
--- NOTE | 2019-09-02 07:00 | NUR ---
RECEIVED AM REPORT FROM NURSE AND ROUNDS DONE. PT IS SLEEPING, NO S/S OF DISTRESS. CALL LIGHT WITHIN REACH AND SIDE RAILS ARE UP
--- NOTE | 2019-09-02 07:26 | NUR ---
BEDSIDE REPORT GIVEN TO THE ONCOMING NURSE
[2019-09-02] MEDS: FINASTERIDE 5 MG TAB PO SCH (10:06)
[2019-09-02] MEDS: ENOXAPARIN SOD INJ 60 MG/0.6 ML SYR SC SCH ×2 (10:06→21:01)
[2019-09-02] MEDS: TAMSULOSIN HCL 0.4 MG CAP PO SCH (10:06)
[2019-09-02] MEDS: SOTALOL HCL 80 MG TAB PO SCH ×2 (10:06→18:30)
[2019-09-02] MEDS: ASPIRIN 81 MG CHEW TAB PO SCH (10:06)
[2019-09-02 15:17] LABS: INR 1.6; PROTHROMBIN TIME 19.7 seconds (11.9-14.5)
--- NOTE | 2019-09-02 18:14 | Progress Note ---
DATE: SUBJECTIVE: Mr. Hernandez is comfortable lying in bed. There are no complaints. REVIEW OF SYSTEMS: HEENT: Negative. PULMONARY: Negative. CARDIAC: Negative. Apparently, his insurance denied LTAC also. The problem is he would need 2 months of IV meropenem and Zyvox. I am not so sure how good to arrange that for his Mycobacterium. We will discuss with case management. Discussed with insurance. On the other hand, the patient is lying in bed, comfortable. PHYSICAL EXAMINATION: GENERAL: He is currently alert, oriented, does not seem to be in acute distress. VITAL SIGNS: Stable. Currently afebrile. HEENT: He is not icteric. NECK: Supple. CHEST: Clear. HEART: S1, S2. No murmurs. ABDOMEN: Soft. Bowel sounds present. No tenderness. EXTREMITIES: No edema. IMPRESSION AND PLAN: 1. Bronchiectasis. 2. Chronic obstructive pulmonary disease. 3. Mycobacterium infection. Please refer to sensitivities. Discussed with Pulmonary. 4. Obtain sedimentation rate and C-reactive protein. 5. We will follow. MD IRLANDA Johnson/LEROY /[id number]
[2019-09-02] MEDS: WARFARIN SOD 2 MG TAB PO SCH (18:30)
--- NOTE | 2019-09-02 20:06 | NUR ---
RECEIVED PT IN BED AOX3 .RESPIRATIONS ARE EVEN AND UNLABORED .FAMILY AT THE BESIDE .CALL LIGHT WITH IN REACH .CONTINUE TO MONITOR
[2019-09-02] MEDS: CRESTOR 10MG PO SCH (21:01)
[2019-09-03] VITALS (7 sets, daily range): BP systolic 101–122; BP diastolic 53–64
--- NOTE | 2019-09-03 | Progress Note ---
DATE: 09/02/2019 Cardiology Progress note SUBJECTIVE: Denies chest pain, shortness of breath, lightheadedness, or syncope today. OBJECTIVE: Predominantly in sinus rhythm on telemetry, occasional paroxysmal atrial fibrillation. VITAL SIGNS: Temperature 95.8, heart rate 55, respiratory rate 14, blood pressure 104/58, O2 saturation 97% on room air. GENERAL: In no acute distress. Alert, active. NECK: No JVD. CHEST: Clear to auscultation. CARDIOVASCULAR: Regular rate and rhythm. Normal S1, S2. No S3 or S4. ABDOMEN: Soft, nontender, nondistended. Bowel sounds positive. EXTREMITIES: No edema. CARDIOVASCULAR MEDICATIONS: Reviewed. 1. Aspirin 81 mg daily. 2. Rosuvastatin 20 mg daily. 3. Warfarin 4 mg daily. 4. Lovenox 60 mg every 12 hours. 5. Sotalol 80 every 12. STUDIES: Reviewed. INR pending. Most recent hemoglobin 11.7. ASSESSMENT: An 84-year-old man with paroxysmal atrial fibrillation, mycobacterial infection, coronary artery disease with history of remote bypass and anemia. RECOMMENDATIONS: 1. Continue current cardiovascular medications. 2. Lovenox bridge for INR less than 2. 3. Monitor on telemetry and QT. MD SAGE Valdivia/LEROY /[id number]
[2019-09-03] MEDS ORDERED: SODIUM CHLORIDE 0.9% 250ML 250 ML ONE (01:35)
[2019-09-03] MEDS: LINEZOLID 600 MG/D5W 300ML 300 ML IV SCH ×2 (02:00→13:59)
--- NOTE | 2019-09-03 05:17 | NUR ---
PT RESTED DURING THE NIGHT AND DENIES PAIN .CALL LIGHT WITH IN REACH .CONTINUE TO MONITOR
[2019-09-03] MEDS: MEROPENEM 500MG/ NS 50ML 50 ML IV SCH ×5 (06:23→23:55)
--- NOTE | 2019-09-03 07:00 | NUR ---
received am report and rounds done. pt is sleeping, no s/s of distress. call light within reach and side rails up
--- NOTE | 2019-09-03 07:05 | NUR ---
BED SIDE REPORT GIVEN TO THE ONCOMING NURSE
--- NOTE | 2019-09-03 07:47 | NUR ---
DR NICHOLE CAME IN AND REPORTED UNABLE TO DO LTAC, SPOKE WITH DR ELLIS HE SUGGESTS TO SPEAK WITH DR KHAN TO SEE IF CAN DO OUT PT.
[2019-09-03] MEDS: ENOXAPARIN SOD INJ 60 MG/0.6 ML SYR SC SCH ×2 (09:15→21:00)
[2019-09-03] MEDS: TAMSULOSIN HCL 0.4 MG CAP PO SCH (09:15)
[2019-09-03] MEDS: SOTALOL HCL 80 MG TAB PO SCH ×2 (09:15→17:53)
[2019-09-03] MEDS: FINASTERIDE 5 MG TAB PO SCH (09:15)
[2019-09-03] MEDS: ASPIRIN 81 MG CHEW TAB PO SCH (09:15)
--- NOTE | 2019-09-03 09:15 | NUR ---
COLLECTED BLOOD X4 TUBES FOR AM LABS AND TOOK DOWN TO LAB
[2019-09-03 09:30] LABS: BASOPHILS % 0.9 % (0.0-1.0); EOSINOPHILS # (AUTO) 0.5 (0.0-0.4); HEMATOCRIT 36.1 % (38.2-49.6); HEMOGLOBIN 11.7 g/dL (14.0-18.0); LYMPHOCYTES # (AUTO) 0.9 (1.0-3.2); LYMPHOCYTES % 20.3 % (18.0-39.1); MEAN CORPUSCULAR HEMOGLOBIN 28.4 pg (28-32); MEAN CORPUSCULAR HGB CONC 32.4 g/dL (31-35); MEAN CORPUSCULAR VOLUME 87.6 fL (81-99); MONOCYTES # (AUTO) 0.5 (0.2-0.8); NEUTROPHILS # (AUTO) 2.6 (2.1-6.9); NEUTROPHILS % 56.9 % (38.7-80.0); PLATELET COUNT 85 x10e3/uL (140-360); RED BLOOD COUNT 4.12 x10e6/uL (4.3-5.7); RED CELL DISTRIBUTION WIDTH 14.7 % (11.7-14.4)
[2019-09-03 10:01] LABS: ALANINE AMINOTRANSFERASE 27 IU/L (0-55); ALBUMIN 3.1 g/dL (3.5-5.0); ALBUMIN/GLOBULIN RATIO 0.9 (0.8-2.0); ALKALINE PHOSPHATASE 77 IU/L (40-150); BLOOD UREA NITROGEN 13 mg/dL (7-26); BUN/CREATININE RATIO 16 (6-25); CALCIUM 8.4 mg/dL (8.4-10.2); CARBON DIOXIDE 28 mmol/L (22-29); CHLORIDE 99 mmol/L (98-107); CREATININE, SERUM 0.83 mg/dL (0.72-1.25); EST GLOMERULAR FILTRATION RATE > 60 ML/MIN (60-); GLUCOSE 143 mg/dL (74-118); SODIUM 136 mmol/L (136-145)
[2019-09-03 10:06] LABS: INR 1.6; PROTHROMBIN TIME 19.7 seconds (11.9-14.5)
--- NOTE | 2019-09-03 11:00 | NUR ---
Received a call from Candelaria P2P coordinator with [employer] [phone]. She states they are wanting to discuss pending LTAC denial and other plans. Candelaria states they will reach out to Dr. Stroud to do the peer to peer. CM to follow
[2019-09-03 11:24] LABS: PLATELET MORPHOLOGY COMMENT NORMAL
[2019-09-03 11:26] LABS: PLATELET ESTIMATE SLIGHTLY DECREASED
--- NOTE | 2019-09-03 11:44 | Progress Note ---
DATE: 09/03/2019 Cardiology Progress Note SUBJECTIVE: Denies any chest pain or shortness of breath. OBJECTIVE: VITAL SIGNS: Temperature 96.5, heart rate 54, respiratory rate 16, and blood pressure 122/64. GENERAL: In no acute distress. Alert. No JVD. CHEST: Clear to auscultate. CARDIOVASCULAR: Regular rate and rhythm. Normal S1, S2. No S3, no S4. ABDOMEN: Soft, nontender. Bowel sounds positive. EXTREMITIES: No edema. SKIN: Sternotomy scar noted. CARDIOVASCULAR MEDICATIONS: Reviewed. STUDIES: Reviewed. INR 1.6. ASSESSMENT AND PLAN: 1. Mycobacterial infection. 2. Coronary artery disease with remote bypass. 3. Paroxysmal atrial fibrillation. 4. Anemia. RECOMMENDATIONS: 1. Continue Lovenox bridge for subtherapeutic INR. 2. Reassess INR tomorrow if continues to be plateaued, we will require further up titration of warfarin dose. 3. Continue sotalol and check EKG for QTc after medication dose change. 4. Avoid QT prolonging drugs, otherwise. 5. Statin, aspirin. Liam Almazan MD AFV/MODL /[id number]
[2019-09-03 11:55] LABS: ERYTHROCYTE SEDIMENTATION RATE 12 mm/hr (0-13)
--- NOTE | 2019-09-03 12:00 | NUR ---
Potential plan for DC is home with IV antibiotics through home health. Order received from Dr. Feliciano for dosage and duration of IV antibiotics. Spoke to patient and son, they choose [facility]. Clinicals faxed to ilya.
--- NOTE | 2019-09-03 14:00 | NUR ---
Dr Stroud states he has spoken to the medical apparatus model maker for insurance, LTAC is not an option per insurance MD and states [facility] and also [facility] [place] are some of the facilities that can do IV antibiotics - Zyvox and Merrem, and percussive therapy. IV abx carve out. Notified Dr. Cassidy about new order for SNF for patient.
--- NOTE | 2019-09-03 15:37 | NUR ---
SPOKE WITH CM AND DOCTOR, HE STATES HE DID PEER TO PEER AND WAS TOLD SNF AND THEY WOULD HAVE TO CARVE OUT THE ABX. HE GAVE 3 IN NETWORK, WENT AND SPOKE WITH THE PT AND HE CALLED HIS SON KALYANI ON PHONE AND GAVE CHOICE FOR [facility], COMPLETED CHOICE LETTER AND FILED ON CHART, FAXED CLINICALS, PASRR TO FACILITY AND COMPLETED RTF AND ATTACHED TO PACKET
--- NOTE | 2019-09-03 16:53 | NUR ---
Nutrition Screen Note RD Recommendation for Physician: - Continue current diet Plan of Care: RD following, monitoring for tolerance and adequacy Nutrition reason for involvement: LOS Primary Diagnose(s): dyspnea and mycobacterial disease PMH: CAD, CABG, HTN, metabolic syndrome, skin cancer, bronchiectasis Ht: 64 in Wt: 137.38 lb BMI: 23.6 kg/m2 IBW: [address] Assessment: (09/03) 84 YOM admitted for dyspnea and mycobacterial disease. Pt seen today for LOS. Pt understands and speaks very little Moroccan. 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 Pt eating 75-100% of meals per chart. Pt pending discharge to SNF per CM. Chart reviewed. Labs and meds reviewed. Will monitor and continue to follow. Current Diet: Cardiac Malnutrition Evaluation (09/03/19) The patient does not meet criteria for a specified degree of malnutrition at this time. Will re-evaluate at follow-up as appropriate. Diet Education Needs Assessment: Diet education not indicated. Diet tolerance: tolerating po Nutrition Care Level: low Signed: Romina Rangel RD, LD, [facility]
[2019-09-03] MEDS: WARFARIN SOD 2 MG TAB PO SCH (17:53)
[2019-09-03] MEDS: CRESTOR 10MG PO SCH (21:00)
--- NOTE | 2019-09-03 23:44 | NUR ---
Received change of shift report from AM nurse. Walking rounds completed.
[2019-09-04] MEDS: LINEZOLID 600 MG/D5W 300ML 300 ML IV SCH ×2 (02:00→14:18)
[2019-09-04 04:09] VITALS: BP 99/48
[2019-09-04] MEDS: MEROPENEM 500MG/ NS 50ML 50 ML IV SCH ×3 (05:31→17:13)
[2019-09-04 07:40] VITALS: BP 116/72
--- NOTE | 2019-09-04 07:40 | NUR ---
PATIENT IN BED RESTING WITH NO S/S OF PAIN OR DISCOMFORT. URINAL EMPTIED AND CLEANSED. BED IN LOWER POSITION,, CALL LIGHT AT REACH.
[2019-09-04 08:01] VITALS: BP 116/72
[2019-09-04] MEDS: SOTALOL HCL 80 MG TAB PO SCH ×2 (09:20→17:13)
[2019-09-04] MEDS: ENOXAPARIN SOD INJ 60 MG/0.6 ML SYR SC SCH (09:20)
[2019-09-04] MEDS: FINASTERIDE 5 MG TAB PO SCH (09:20)
[2019-09-04] MEDS: ASPIRIN 81 MG CHEW TAB PO SCH (09:20)
[2019-09-04] MEDS: TAMSULOSIN HCL 0.4 MG CAP PO SCH (09:20)
--- NOTE | 2019-09-04 11:37 | NUR ---
PATIENT OUT OF BED TO CHAIR WATCHING TV. CALL LIGHT AT REACH.
[2019-09-04 11:48] VITALS: BP 106/60
--- NOTE | 2019-09-04 15:18 | Progress Note ---
DATE: 09/04/2019 Cardiology Progress Note SUBJECTIVE: No complaints. Denies chest pain, shortness of breath, lightheadedness, or syncope. OBJECTIVE: VITAL SIGNS: Temperature 96.3, heart rate 54, respiratory rate 18, blood pressure 106/60, and O2 saturation 97% on room air. GENERAL: No acute distress, alert. NECK: No JVD. CHEST: Clear to auscultation. CARDIOVASCULAR: Regular rate and rhythm. Normal S1, S2. No S3, no S4. No murmurs, no rubs. ABDOMEN: Soft, nontender, nondistended. Bowel sounds positive. EXTREMITIES: No cyanosis, clubbing, or edema. CARDIOVASCULAR MEDICATIONS: Reviewed. Rosuvastatin 20 mg at bedtime, sotalol 80 mg b.i.d., warfarin 4 mg daily, aspirin 81 mg daily, Lovenox 60 mg subcu q.12 hours, nitroglycerin p.r.n. STUDIES: Reviewed. Potassium 4, creatinine 0.8, hemoglobin 11, and platelets 85. INR 1.6. ASSESSMENT: An 84-year-old man with mycobacterial infection, paroxysmal atrial fibrillation, coronary artery disease, dyslipidemia. RECOMMEND: 1. Up-titration of warfarin to 5 mg daily. 2. Continue Lovenox bridge while INR less than 2. 3. Continue rest of cardiovascular medications. 4. Monitor telemetry and interval mitral QT as the patient is on sotalol. 5. Avoid QT prolonging drugs. MD SAGE Valdivia/LEROY /[id number]
[2019-09-04 16:06] VITALS: BP 102/55
--- NOTE | 2019-09-04 16:14 | NUR ---
Spoke to [facility], they state Mr. Hernandez's meds will be coming in [facility]. Notified Moiz to call report to [phone] room [address] Spoke to [address]. Cassidy - received a DC order. Patient is to follow up with Dr. Feliciano and Dr. Stroud in [address] Feliciano wants IV merrem for 2 months. Check INR daily per Dr. Cassidy and when therapeutic - adjust coumadin dose and d/c lovenox.
--- NOTE | 2019-09-04 16:31 | NUR ---
NOTIFIED ARIEL OSPINA TO DO MED REQ PER DR ELLIS'S ORDER
--- NOTE | 2019-09-04 16:35 | NUR ---
PATIENT AMBULATING IN THE ROOM. NO COMPLAIN VOICED. ALL PERSONAL ITEMS AT EASY REACH. CALL LIGHT AT REACH.
[2019-09-04] MEDS ORDERED: WARFARIN SOD 5 MG TAB PO SCH (17:00)
[2019-09-04] MEDS ORDERED: WARFARIN SOD 2 MG TAB PO SCH (17:00)
--- NOTE | 2019-09-04 18:28 | NUR ---
PATIENT TRANSFERRED TO [facility] FACILITY. REPORT CALLED AND GIVEN TO RECEIVING NURSE. PATIENT'S CHARIS KISER NOTIFIED. PICC LINE TO LEFT UPPER ARM INTACT AND PATENT. ALL PERSONAL ITEMS TAKEN WITH PATIENT. LEFT UNIT ON STRETCHER PER AMBULANCE IN STABLE CONDITION.
== END 2019-09-04 18:29 | DRG 178 ==
LOC: ER 15:50 → ERHOLD 18:48 → MED/SURG3 22:55
PROVIDERS: ADMIT Internal Medicine; ATTEND Internal Medicine
PROC: 02HV33Z Insertion of Infusion Device into Superior Vena Cava, Percutaneous Approach (ICD-10-PCS; principal; 2019-08-28)
DX: A31.0 Pulmonary mycobacterial infection (principal); J47.1 Bronchiectasis with (acute) exacerbation; D68.8 Other specified coagulation defects; E46 Unspecified protein-calorie malnutrition; E88.09 Other disorders of plasma-protein metabolism, not elsewhere classified; Z68.25 Body mass index [BMI] 25.0-25.9, adult; J18.9 Pneumonia, unspecified organism; N40.0 Benign prostatic hyperplasia without lower urinary tract symptoms; I25.10 Atherosclerotic heart disease of native coronary artery without angina pectoris; J61 Pneumoconiosis due to asbestos and other mineral fibers; I48.0 Paroxysmal atrial fibrillation; E78.5 Hyperlipidemia, unspecified; Z95.1 Presence of aortocoronary bypass graft
CPT/HCPCS: 36415; 36569; 71045; 71260; 80048; 80053; 81001; 82550; 82553; 83605; 83690; 83735; 83880; 84100; 84484; 85025; 85610; 85651; 85730; 87040; 87086; 87400; 93005; 93306; 94640; 94667; 99284; J0456; J1160; J1650; J2020; J7030; J7050; Q9967